=== PATIENT | male | born 1945 | race Two or more races ===

== ENCOUNTER 2017-03-12 18:54 | Emergency (ER) | payer MEDICARE, OTHER ==
[~2017-03-12] VITALS: Ht 185.4 cm; Wt 104.3 kg
[2017-03-12 18:59] VITALS: BP 123/93
--- NOTE | 2017-03-12 19:02 | Emergency Room Report ---
History of Present Illness General Chief Complaint: Nausea Source: Patient, Medical Record, EMS Present Illness HPI Is a 71-year-old male with a history hypertension, CHF and pacemaker. He presents with chief complaint of not feeling well and abdominal pain. No diarrhea. One episode vomiting. This is similar symptom in the past. He is very poor historian. Per EMS, few days ago they took him to [facility] the same complaint. He also had an armband from [employer] 3 days ago. I called the ER and spoke with the ER Dr. palacios. He was admitted for abdominal pain epigastric pain. Echocardiogram was unremarkable. Chest x-ray unremarkable. He was discharged home. He was admitted for 2-3 days. History from the patient is very limited this is a very poor historian. Allergies: Coded Allergies: No Known Allergies (Unverified , 10/02/15) Patient History Past Medical History: see triage record, old chart reviewed, HTN, CHF Past Surgical History: other Pertinent Family History: none Social History: Denies: smoking Immunizations: other Reviewed Nursing Documentation: PMH: Agreed, PSxH: Agreed Nursing Documentation-PMH Past Medical History: No History, Except For Hx Hypertension: Yes Hx Pacemaker: Yes Review of Systems Eye: Denies: eye pain, blurred vision ENT: Denies: ear pain, nose congestion, throat swelling Respiratory: Denies: cough, shortness of breath Cardiovascular: Denies: chest pain, palpitations Gastrointestinal: Reports: abdominal pain, nausea, vomiting, Denies: diarrhea Musculoskeletal: Denies: back pain, joint pain Skin: Denies: rash Neurological: Denies: headache, numbness Endocrine: Denies: increased thirst, increased urine Hematologic/Lymphatic: Denies: easy bruising All Other Systems: negative except mentioned in HPI Physical Exam Vital Signs Date Time Temp Pulse Resp B/P (MAP) Pulse Ox O2 Delivery O2 Flow Rate FiO2 03/12/17 18:49 98.1 80 20 128/78 98 Room Air vitals normal Sp02 EP Interpretation: reviewed, normal General Appearance: well appearing, no apparent distress, alert Head: normocephalic, atraumatic Eyes: bilateral eye PERRL, bilateral eye EOMI ENT: hearing grossly normal, normal pharynx Neck: full range of motion, supple, no meningismus Respiratory: chest non-tender, lungs clear, normal breath sounds Cardiovascular #1: regular rate, rhythm, no murmur Gastrointestinal: normal bowel sounds, non tender, no mass, no organomegaly, no bruit, non-distended Musculoskeletal: back normal, gait/station normal, normal range of motion Psychiatric: mood/affect normal Skin: warm/dry Medical Decision Making Diagnostic Impression: Primary Impression: Pancreatitis, acute Qualified Codes: K85.90 - Acute pancreatitis without necrosis or infection, unspecified Additional Impression: OTTO (acute kidney injury) ER Course Patient presents with abdominal pain with nausea and vomiting. He has acute pancreatitis. No obstruction. Creatinine elevated. Unknown baseline. Per ER doctor at [facility], labs are unremarkable. Patient denies alcohol. patient is stable for transfer. Lab Results Impression labs with elevated lipase CT/MRI/US Diagnostic Results CT/MRI/US Diagnostic Results : Imaging Test Ordered: CT abdomen and pelvis Impression read by radiologist. Pancreatitis. Last Vital Signs Date Time Temp Pulse Resp B/P (MAP) Pulse Ox O2 Delivery O2 Flow Rate FiO2 03/12/17 18:49 98.1 80 20 128/78 98 Room Air Status: improved [facility] Condition: Stable REYNA PARIS M.D. Mar 12, 2017 19:02
[2017-03-12 19:40] LABS: BASOPHILS % (AUTO) 0.9 % (0.0-2.0); EOSINOPHILS % (AUTO) 0.4 % (0.0-3.0); LYMPHOCYTES % (AUTO) 6.7 % (20.0-45.0); MEAN CORPUSCULAR HEMOGLOBIN 31.5 PG (27.0-31.0); MEAN CORPUSCULAR HGB CONC 34.3 G/DL (32.0-36.0); MEAN CORPUSCULAR VOLUME 92 FL (80-99); MEAN PLATELET VOLUME 7.1 FL (6.5-10.1); MONOCYTES % (AUTO) 7.4 % (1.0-10.0); NEUTROPHILS % (AUTO) 84.7 % (45.0-75.0); PLATELET COUNT 163 K/UL (150-450); RED BLOOD COUNT 5.03 M/UL (4.70-6.10); RED CELL DISTRIBUTION WIDTH 14.4 % (11.6-14.8); WHITE BLOOD COUNT 11.9 K/UL (4.8-10.8)
[2017-03-12 19:52] VITALS: BP 124/72
[2017-03-12 20:04] LABS: ANION GAP 15 mmol/L (5-15); CALCIUM 8.7 MG/DL (8.5-10.1); CARBON DIOXIDE 23 MMOL/L (21-32); CHLORIDE 102 MMOL/L (98-107); GLOMERULAR FILTRATION RATE 33.3 mL/min (>60); POTASSIUM 4.2 MMOL/L (3.5-5.1); SODIUM 140 MMOL/L (136-145)
[2017-03-12 20:15] LABS: ALANINE AMINOTRANSFERASE 78 U/L (12-78); ALBUMIN/GLOBULIN RATIO 0.8 (1.0-2.7); ASPARTATE AMINO TRANSFERASE 95 U/L (15-37); LIPASE 13944 U/L (73-393); TOTAL PROTEIN 7.8 G/DL (6.4-8.2)
[2017-03-12 20:16] LABS: APPEARANCE,URINE CLOUDY; KETONES,URINE 2+ (NEGATIVE); PROTEIN,URINE 2+ (NEGATIVE)
[2017-03-12 20:17] LABS: LEUKOCYTE ESTERASE ,URINE 3+ (NEGATIVE); NITRITE,URINE NEGATIVE (NEGATIVE); UROBILINOGEN,URINE 12 MG/DL (0.0-1.0)
[2017-03-12 20:18] LABS: BACTERIA,URINE FEW /HPF; ICTOTEST NEGATIVE; RBC,URINE 0-2 /HPF (0 - 0); SQUAMOUS EPITHELIAL CELL,UR FEW /LPF (NONE/OCC); WBC,URINE 20-30 /HPF (0 - 0)
[2017-03-12 20:19] LABS: BILIRUBIN,DIRECT 3.1 MG/DL (0.0-0.3)
[2017-03-12 21:11] VITALS: BP 134/87
[2017-03-12] MEDS ORDERED: Morphine Sulfate 4mg/ml Inj IVP ONE (21:45)
[2017-03-12 21:53] VITALS: BP 142/99
[2017-03-12 22:31] VITALS: BP 135/95
[2017-03-12] MEDS ORDERED: LORazepam Inj 2mg/ml 1ml IV PRN (22:45)
[2017-03-12] MEDS ORDERED: Nitroglycerin Subl 0.4mg tab SL PRN (22:45)
[2017-03-12] MEDS ORDERED: Morphine Sulfate 2mg/ml Inj IVP PRN (22:45)
[2017-03-12] MEDS ORDERED: Mylanta II UD 30ml ORAL PRN (22:45)
[2017-03-12] MEDS ORDERED: Metoclopramide 10mg/2ml Inj IVP PRN (22:45)
[2017-03-12] MEDS ORDERED: Miralax 17gm pkt ORAL PRN (22:45)
[2017-03-12 22:54] VITALS: BP 134/87
[2017-03-12] MEDS ORDERED: D5 1/2NS 1,000 ML IV SCH (23:00)
[2017-03-13] MEDS ORDERED: Heparin 5000 units/ml inj SUBQ SCH (09:00)
[2017-03-13] MEDS ORDERED: Pantoprazole Inj IV SCH (09:00)
--- NOTE | 2017-03-13 10:46 | Diagnostic Imaging Report ---
Indication: Abdominal pain Technique: Spiral acquisitions obtained through the abdomen and pelvis. No oral contrast utilized, per emergency room physician request No IV contrast utilized, per referring physician request.. Multiplanar reconstructions were generated. Total dose length product 914 mGycm. CTDIvol(s) 15 mGy. Dose reduction achieved using automated exposure control Comparison: None Findings: There is slight enlargement of the pancreatic head and uncinate infiltration of the peripancreatic fat. There is also some stranding of the fat surrounding the second portion of the duodenum. No discrete fluid collection demonstrated. No evidence of gallstones or bile duct calculi. Lack of IV contrast limits assessment of the solid organs. The liver contains a cyst in segment 8, as well as a subcentimeter low-attenuation lesion in segment 8 which is too small to characterize. Spleen and adrenals are unremarkable. There is some focal cortical scarring in the upper pole of the right kidney. The left renal contour is also slightly lobulated. No renal or ureteral calculi, hydronephrosis, or hydroureter demonstrated. The appendix is not definitely demonstrated, but no findings to suggest acute appendicitis are evident. No small bowel distention. No evidence of diverticulosis or diverticulitis. There is a ventral hernia which contains only fat. There is a small sliding-type hiatal hernia. There is an inferior vena cava filter. The included lung bases demonstrate some posterior dependent atelectatic changes. The heart is mildly enlarged. It contains AICD wires. Impression: Peripancreatic stranding, particularly surrounding the head and uncinate. There is also periduodenal stranding. Findings most likely represent uncomplicated acute pancreatitis. Possibility of duodenitis or peptic ulcer disease should also be considered. Pancreatic necrosis not excludable in the absence of IV contrast administration Mild cardiomegaly Right lobe liver cyst. Subcentimeter low-attenuation right lobe liver lesion, too small to characterize, most likely benign simple cysts or bile hamartomas. No further followup necessary Incidental findings as noted, including AICD, posterior dependent pulmonary atelectasis, inferior vena cava filter, small sliding-type hiatal hernia, fat-containing ventral hernia, right renal cortical scarring This agrees with the preliminary interpretation provided overnight by [facility] teleradiology service. The CT scanner at [facility] is accredited by the [employer] and the scans are performed using protocols designed to limit radiation exposure to as low as reasonably achievable to attain images of sufficient resolution adequate for diagnostic evaluation.
== END 2017-03-12 22:55 | disposition short-term general hospital (02) ==
LOC: EDBD 18:54 → EMR 19:13
DX: K85.90 Acute pancreatitis without necrosis or infection, unspecified (principal); N17.9 Acute kidney failure, unspecified; I10 Essential (primary) hypertension; Z95.0 Presence of cardiac pacemaker
CPT/HCPCS: 36415; 74176; 80053; 80307; 81003; 82248; 83690; 84484; 85025; 87086; 99285; J2270; J2405

== ENCOUNTER 2018-11-19 20:56 | Emergency (ER) | payer MEDICARE, OTHER ==
[~2018-11-19] VITALS: Ht 185.4 cm; Wt 104.3 kg
--- NOTE | 2018-11-19 20:56 | NUR ---
ED Nurse Note: pt brought in by ANTHONYD 34. pt C/O chest pain 11/27. non radiating. Bp 148/89, p 85, rr 18 pt is alert x4, ambulatory.
[2018-11-19 21:00] VITALS: BP 154/90
--- NOTE | 2018-11-19 21:31 | Emergency Room Report ---
History of Present Illness General Chief Complaint: General Complaint Source: Patient Present Illness HPI HPI: 73-year-old male with history of CAD, hypertension, hyperlipidemia, prior DVT status post IVC filter, CHF status post pacemaker presents for evaluation of foreign body sensation in his chest. The patient states that he had an IVC filter placed 1 or 2 years ago and believes it was "dislodged" when he had a fall from standing several months ago. There is no injury sustained in the fall. He has been having a foreign body sensation in his chest for several months. He denies any change in his condition today but simply thought it was time to get it checked out. He does note recent cough with some purulent production but no fever, no diarrhea, abdominal pain, dysuria, hematuria or new rash. States he is compliant with medications but does not know exactly which ones he is taking offhand. He is somewhat of a poor historian. PMH: Hypertension, hyperlipidemia, CAD, CHF, previous DVT PSH: Pacemaker placement, appendectomy, IVC filter Allergies: Denies Social Hx: Denies alcohol, drug or tobacco use Allergies: Coded Allergies: No Known Allergies (Unverified , 10/02/15) Nursing Documentation-PMH Past Medical History: No History, Except For Hx Cardiac Problems: Yes - CHF, Blood Clots Hx Hypertension: Yes - HTN Hx Pacemaker: Yes Review of Systems All Other Systems: negative except mentioned in HPI Physical Exam Vital Signs Date Time Temp Pulse Resp B/P (MAP) Pulse Ox O2 Delivery O2 Flow Rate FiO2 11/19/18 20:53 98.2 93 18 156/92 (113) 98 Room Air General: Awake and alert, no acute distress HEENT: NC/AT. EOMI. Neck: Supple, trachea midline Chest Wall: Tender to palpation over the sternum. There is a palpable pacemaker in the left upper chest wall. Cardiovascular: RRR. S1 and S2 normal. No murmur appreciated Resp: Normal work of breathing. No cough, wheezing or crackles appreciated Abdomen: Abdomen is soft, nondistended. Nontender. There is an umbilical hernia that is easily reducible without overlying signs of infection. Skin: Intact. No abrasions, laceration or rash over the exposed skin MSK: Normal tone and bulk. Moving all extremities. No obvious deformity. There is no edema or unilateral calf swelling in the lower extremities. Neuro: Awake and alert. Mentating appropriately. Medical Decision Making Diagnostic Impression: Primary Impression: Chest wall pain ER Course 73-year-old male presents for evaluation of foreign body sensation of the chest going on for several months. No change in his condition today and physical exam find some reproducible chest wall pain. Differential includes but is not limited to bronchitis, pneumonia, esophageal spasm, unstable angina, ACS, AICD wire displacement. We will obtain cardiac work-up including chest x-ray to evaluate. Patient is in no acute distress. Vital signs are stable and reassuring. Laboratory Tests Test 11/19/18 21:10 White Blood Count 6.6 K/UL (4.8-10.8) Red Blood Count 5.50 M/UL (4.70-6.10) Hemoglobin 15.9 G/DL (14.2-18.0) Hematocrit 47.9 % (42.0-52.0) Mean Corpuscular Volume 87 FL (80-99) Mean Corpuscular Hemoglobin 28.9 PG (27.0-31.0) Mean Corpuscular Hemoglobin Concent 33.1 G/DL (32.0-36.0) Red Cell Distribution Width 12.5 % (11.6-14.8) Platelet Count 215 K/UL (150-450) Mean Platelet Volume 6.4 FL (6.5-10.1) L Neutrophils (%) (Auto) 56.4 % (45.0-75.0) Lymphocytes (%) (Auto) 31.0 % (20.0-45.0) Monocytes (%) (Auto) 8.7 % (1.0-10.0) Eosinophils (%) (Auto) 2.5 % (0.0-3.0) Basophils (%) (Auto) 1.4 % (0.0-2.0) Sodium Level 137 MMOL/L (136-145) Potassium Level 3.8 MMOL/L (3.5-5.1) Chloride Level 105 MMOL/L (98-107) Carbon Dioxide Level 28 MMOL/L (21-32) Anion Gap 4 mmol/L (5-15) L Blood Urea Nitrogen 22 mg/dL (7-18) H Creatinine 1.5 MG/DL (0.55-1.30) H Estimate Glomerular Filtration Rate mL/min (>60) Glucose Level 111 MG/DL (74-106) H Calcium Level 9.2 MG/DL (8.5-10.1) Total Bilirubin 0.3 MG/DL (0.2-1.0) Aspartate Amino Transferase (AST) 15 U/L (15-37) Alanine Aminotransferase (ALT) 16 U/L (12-78) Alkaline Phosphatase 116 U/L (46-116) Total Creatine Kinase 102 U/L (26-308) Creatine Kinase MB 0.8 NG/ML (0.0-3.6) Creatine Kinase MB Relative Index 0.7 Troponin I 0.012 ng/mL (0.000-0.056) Total Protein 8.1 G/DL (6.4-8.2) Albumin 3.8 G/DL (3.4-5.0) Globulin 4.3 g/dL Albumin/Globulin Ratio 0.9 (1.0-2.7) L EKG Diagnostic Results EKG Time: 21:20 Rate: normal Rhythm: NSR ST Segments: no acute changes Other Impression Inferior Q waves. Unchanged from prior in 2016. Rhythm Strip Diag. Results Rhythm Strip Time: 21:20 EP Interpretation: yes Rate: 85 Rhythm: NSR Chest X-Ray Diagnostic Results Chest X-Ray Diagnostic Results : # of Views/Limited/Complete: 1 View Indication: Chest Pain EP Interpretation: Yes Interpretation: no consolidation, no effusion, no pneumothorax, other - pacemaker wires and pacemaker appear in place Impression: No acute disease Electronically Signed by: Electronically signed by Dr. Soto Herrera Reevaluation Time: 22:50 Last Vital Signs Date Time Temp Pulse Resp B/P (MAP) Pulse Ox O2 Delivery O2 Flow Rate FiO2 11/19/18 20:53 98.2 93 18 156/92 (113) 98 Room Air Status: unchanged Reevaluation Impression Chest x-ray shows an intact pacemaker with wires apparently in acceptable position. No pathology appreciated in the lungs to suggest pneumonia or bronchitis or other infectious process. Labs are reassuring, troponin is negative. Creatinine is slightly elevated 1.5 however this is an improvement from the patient's prior visit in 2017 where is 2.0. I believe he is experiencing muscular skeletal chest wall pain as opposed to a cardiac cause or a foreign body because of his chest discomfort for the past few months. He will be referred to PMD for further follow-up and I instructed him to use NSAIDs and attempt to improve his symptoms. At this time I feel if he is safe for discharge home to follow-up as an outpatient. We did discuss reasons to return to the emergency department and he understands and agrees with this treatment plan. Please note that this report is being documented using [employer] technology. This can lead to erroneous entry secondary to incorrect interpretation by the dictating instrument. Disposition: HOME, SELF-CARE Condition: Stable Scripts Acetaminophen* (ACETAMINOPHEN 325MG TABLET*) 325 Mg Tablet 650 MG ORAL Q6H PRN for For Pain, #60 TAB Prov: Soto Herrera MD 11/19/18 Soto Herrera MD Nov 19, 2018 21:31
[2018-11-19 21:35] LABS: BASOPHILS % (AUTO) 1.4 % (0.0-2.0); EOSINOPHILS % (AUTO) 2.5 % (0.0-3.0); HEMATOCRIT 47.9 % (42.0-52.0); HEMOGLOBIN 15.9 G/DL (14.2-18.0); MEAN CORPUSCULAR VOLUME 87 FL (80-99); MONOCYTES % (AUTO) 8.7 % (1.0-10.0); NEUTROPHILS % (AUTO) 56.4 % (45.0-75.0); PLATELET COUNT 215 K/UL (150-450); RED CELL DISTRIBUTION WIDTH 12.5 % (11.6-14.8); WHITE BLOOD COUNT 6.6 K/UL (4.8-10.8)
--- NOTE | 2018-11-19 21:53 | Diagnostic Imaging Report ---
EXAM: XR Chest, 1 View CLINICAL HISTORY: CP TECHNIQUE: Frontal view of the chest. COMPARISON: 10/02/2015. FINDINGS: Lungs: Possible mild pulmonary vascular congestion. No focal consolidation. Pleural space: Unremarkable. No pneumothorax. Heart: Cardiomegaly. Mediastinum: Unremarkable. Bones/joints: Unremarkable. Tubes, lines and devices: Left chest cardiac pacer. IMPRESSION: Possible mild pulmonary vascular congestion. No focal consolidation.
[2018-11-19 22:11] LABS: ANION GAP 4 mmol/L (5-15); BLOOD UREA NITROGEN 22 mg/dL (7-18); CALCIUM 9.2 MG/DL (8.5-10.1); CARBON DIOXIDE 28 MMOL/L (21-32); CHLORIDE 105 MMOL/L (98-107); CREATININE 1.5 MG/DL (0.55-1.30); POTASSIUM 3.8 MMOL/L (3.5-5.1); SODIUM 137 MMOL/L (136-145)
[2018-11-19 22:24] LABS: ALANINE AMINOTRANSFERASE 16 U/L (12-78); ALBUMIN 3.8 G/DL (3.4-5.0); ALBUMIN/GLOBULIN RATIO 0.9 (1.0-2.7); ALKALINE PHOSPHATASE 116 U/L (46-116); ASPARTATE AMINO TRANSFERASE 15 U/L (15-37); BILIRUBIN,TOTAL 0.3 MG/DL (0.2-1.0); CKMB 0.8 NG/ML (0.0-3.6); CREATINE KINASE 102 U/L (26-308)
[2018-11-19] MEDS ORDERED: ACETAMINOPHEN325 M1 ORAL (22:55)
[2018-11-19 23:08] VITALS: BP 145/84
--- NOTE | 2018-11-19 23:08 | NUR ---
ER DISCHARGE NOTE: Patient is cleared to be discharged per ERMD, pt is aox4, on room air, with stable vital signs. pt was given dc instructions, pt was able to verbalize understanding, pt id band and iv site removed without complications. pt is able to ambulate with steady gait. pt took all belongings.
== END 2018-11-19 23:08 | disposition home or self-care (01) ==
LOC: EDBD 20:56 → EMR 22:15
DX: R07.89 Other chest pain (principal); I25.10 Atherosclerotic heart disease of native coronary artery without angina pectoris; I11.0 Hypertensive heart disease with heart failure; I50.9 Heart failure, unspecified; E78.5 Hyperlipidemia, unspecified; Z86.718 Personal history of other venous thrombosis and embolism; Z95.0 Presence of cardiac pacemaker
CPT/HCPCS: 36415; 71045; 80053; 82550; 82553; 84484; 85025; 99284